=== PATIENT | female | born 1950 | race Caucasian/White ===

== ENCOUNTER 2022-11-16 14:38 | Emergency (ER) | payer MEDICARE | END 2022-11-16 15:07 | disposition home or self-care (01) | LOC: BURERS 14:38 | DX: K64.4 Residual hemorrhoidal skin tags (principal); E78.00 Pure hypercholesterolemia, unspecified; I10 Essential (primary) hypertension | CPT/HCPCS: 99283 ==

== ENCOUNTER 2024-04-17 16:05 | Emergency (ER) | payer MEDICARE, OTHER | END 2024-04-17 16:44 | disposition home or self-care (01) | LOC: BURERS 16:05 | DX: I10 Essential (primary) hypertension (principal); E78.00 Pure hypercholesterolemia, unspecified; Z79.899 Other long term (current) drug therapy | CPT/HCPCS: 99283 ==